=== PATIENT | female | born 1985 | race Caucasian/White ===

== ENCOUNTER 2019-11-19 07:23 | Day surgery (SDC) | payer MEDICAID ==
[~2019-11-19 07:23] MED LIST: Lactated Ringers 1,000 ML IV SCH; Midazolam 1 MG/ML 2 ML SDV ONE; Propofol 200 MG/20 ML SDV ONE; fentaNYL 100 MCG/2 ML SDV ONE
[2019-11-19] MEDS ORDERED: Cyanocobalamin (Vitamin B12) 1,000 MCG/ML SDV IM ONE (07:30)
[2019-11-19] MEDS ORDERED: Glycopyrrolate 0.2 MG/ML 2 ML SDV IVPUSH ONE (08:00)
[2019-11-19] MEDS ORDERED: MVI, Adult with Vitamin K 10 ML, Thiamine 200 MG, Chromium/Copper/Mang/Selen/Zn 1 ML in... IV ONE ×4 (08:30)
[2019-11-19] MEDS ORDERED: Lidocaine 2% 60 ML, Alum Hydrox/Mag Hydrox/Simeth 360 ML PO PRN ×2 (10:22)
--- NOTE | 2019-11-24 08:56 | OR ---
DATE OF PROCEDURE: 11/19/2019 SURGEON: Harjinder Mejia MD PREOPERATIVE DIAGNOSES: Epigastric pain with eating and iron deficiency anemia status post Alcides-en-Y gastric bypass. POSTOPERATIVE DIAGNOSIS: Minimal inflammation of gastric pouch. OPERATIVE PROCEDURE: Upper gastrointestinal endoscopy with biopsy of gastric pouch for CLOtest. ANESTHESIA: IV sedation. INDICATION FOR PROCEDURE: This is a 34-year-old status post previous Alcides-en-Y gastric bypass, presenting with some ongoing epigastric discomfort, particularly with eating. She has been on both Protonix and Carafate. She also has a marked iron deficiency anemia and has received 1 iron infusion consisting of Venofer 500 mg and will be receiving another one later today. Plan is to proceed with upper GI endoscopy for diagnostic purposes. Potential risks including bleeding and perforation were discussed, and the patient wishes to proceed. DETAILS OF PROCEDURE: The patient was taken to the operating room, placed in a left lateral decubitus position. IV sedation was administered, after which the upper GI endoscope was passed orally through the length of esophagus into the gastric pouch, from there through the gastrojejunostomy, roughly 20 cm into the Alcides limb. Findings included normal hypopharynx, larynx, upper esophageal sphincter, and esophageal body. At the EG junction, no significant inflammation was noted, but the gastric pouch had very slight edema and redness present, but no erosions or ulcers. Gastrojejunostomy was widely patent, and no significant inflammation was noted around it. The previous marginal ulcer that had been seen earlier was now entirely resolved. The visualized portion of the Alcides limb was also unremarkable. At this point, biopsies were obtained from the gastric pouch and sent for CLOtest for H. pylori. Minimal bleeding from the biopsy site was seen and the procedure then concluded. The plan will be to add a mixture of 2 ounces of Xylocaine with 12 ounces of Mylanta to take 1 or 2 tablespoons before eating, this may help with the epigastric discomfort when eating. Otherwise, her current prescription is for a vitamin with iron. She previously had been written for ferrous gluconate. We will add to the current medication Vitron-C two tablets a day, this is iron combined with vitamin C. In the past, it had been unclear whether she was taking the ascorbic acid, which was previously prescribed as well, with the iron consistently and combining these as one tablet may help that consistency in terms of taking iron concurrently with vitamin C. It is notable after a gastric bypass, the lack of significant acid exposure to the iron will lead it to be very poorly reabsorbed, thus adding the vitamin C is helpful with absorption of the iron. The patient will be receiving her second iron infusion today. Followup with Tierney Hurd will be in about 3 weeks, and she will be seen in [facility] today. Harjinder Mejia MD /[id number]
== END 2019-11-19 12:03 | disposition home or self-care (01) ==
LOC: JP.SDS 07:23
PROVIDERS: ATTEND Surgery
DX: K95.89 Other complications of other bariatric procedure (principal); D50.9 Iron deficiency anemia, unspecified; F17.200 Nicotine dependence, unspecified, uncomplicated; Z98.84 Bariatric surgery status
CPT/HCPCS: 81001; 81025; 87081; 87086; 87088; 87186; A9270-GY; J2250; J2704; J3010; J3411; J3420; J3490; J7120

== ENCOUNTER 2020-01-12 12:03 | Emergency (ER) | payer MEDICAID | END 2020-01-12 12:15 | disposition left against medical advice (07) | LOC: JP.ED 12:03 | DX: Z53.21 Procedure and treatment not carried out due to patient leaving prior to being seen by health care provider (principal) ==